=== PATIENT | male | born 1950 | race Caucasian/White ===

== ENCOUNTER 2016-08-09 | Outpatient (CLI) | payer OTHER | END 2016-08-09 13:18 | disposition critical access hospital (66) | CPT/HCPCS: A0425; A0429 ==

== ENCOUNTER 2018-04-28 05:07 | Emergency (ER) | payer MEDICARE, OTHER ==
--- NOTE | 2018-04-28 05:36 | ED Physician Documentation ---
PD HPI MALE - Stated complaint Stated Complaint: MALE - Chief complaint Chief Complaint: Abd Pain - History obtained from History obtained from: Patient, Family - History of Present Illness Timing - onset: Enter time (0), Last night Timing - duration: Hours Timing - details: Abrupt onset, Still present Associated symptoms: Hematuria, Back pain Similar symptoms before: Has not had sx before Recently seen: Not recently seen - Additional information Additional information: Previously well 67-year-old male on coumadin for afib has developed some hematuria at about 10 PM last night. He does state that earlier in the day he had some pain in his back which he thought was his usual back pains and then this evening after the hematuria developed he became quite uncomfortable with pain in his back. He states he does not remember having pain this bad previously. He continues to have hematuria. He has not had fever or chills he does not feel ill but he did vomit he believes that was due to the pain. Review of Systems Constitutional: denies: Fever, Chills, Myalgias Eyes: denies: Decreased vision Ears: denies: Ear pain Nose: denies: Rhinorrhea / runny nose, Congestion Throat: denies: Sore throat Cardiac: denies: Chest pain / pressure, Palpitations Respiratory: denies: Dyspnea, Cough GI: reports: Nausea, Vomiting. denies: Abdominal Pain : reports: Hematuria. denies: Dysuria Skin: denies: Rash Musculoskeletal: reports: Back pain. denies: Neck pain, Extremity pain Neurologic: denies: Generalized weakness, Focal weakness, Numbness PD PAST MEDICAL HISTORY - Past Medical History Past Medical History: Yes Cardiovascular: High cholesterol, Atrial fibrillation, Hypertension Respiratory: None Endocrine/Autoimmune: None GI: None : Benign prostate hypertrophy, None HEENT: None Psych: None Musculoskeletal: None, Osteoarthritis Derm: None - Past Surgical History Past Surgical History: Yes General: Other Ortho: ACL reconstruction - Present Medications Home Medications: Ambulatory Orders Medication Instructions Recorded Confirmed RX: Metoprolol Tartrate 100 mg PO BID 02/22/14 04/28/18 RX: Aspirin [Aspir-Low] 81 mg PO DAILY 08/09/16 04/28/18 RX: Atorvastatin Calcium 20 mg PO DAILY 04/28/18 04/28/18 RX: Flecainide [Tambocar] 100 mg PO DAILY 04/28/18 04/28/18 RX: Lisinopril 20 mg PO DAILY 04/28/18 04/28/18 RX: Warfarin Sodium 5 mg PO QPM 04/28/18 04/28/18 RX: Warfarin Sodium 7.5 mg PO DAILY 04/28/18 04/28/18 - Allergies Allergies/Adverse Reactions: Allergies Allergy/AdvReac Type Severity Reaction Status Date / Time codeine AdvReac Nausea Verified 04/28/18 05:18 - Social History Does the pt smoke?: Yes Smoking Status: Current every day smoker Does the pt drink ETOH?: Yes Does the pt have substance abuse?: Yes - POLST Patient has POLST: No PD ED PE NORMAL - Vitals Vital signs reviewed: Yes (hypertensive moderate) - General General: Alert and oriented X 3, No acute distress, Well developed/nourished - HEENT HEENT: Atraumatic, PERRL, EOMI - Neck Neck: Supple, no meningeal sign - Cardiac Cardiac: RRR, No murmur - Respiratory Respiratory: No respiratory distress, Clear bilaterally - Abdomen Abdomen: Soft, Non tender, No organomegaly - Back Back: No CVA TTP, No spinal TTP - Derm Derm: Normal color, Warm and dry, No rash - Extremities Extremities: No deformity, No edema - Neuro Neuro: Alert and oriented X 3, piercer 2-12 intact, No motor deficit, No sensory deficit, Normal speech Eye Opening: Spontaneous Motor: Obeys Commands Verbal: Oriented GCS Score: 15 - Psych Psych: Normal mood, Normal affect Results - Vitals Vitals: Vital Signs - 24 hr 04/28/18 04/28/18 04/28/18 05:15 05:53 06:14 Temperature 36.9 C Heart Rate 90 89 86 Respiratory 20 16 16 Rate Blood Pressure 179/105 H 183/114 H 171/119 H O2 Saturation 96 95 97 04/28/18 04/28/18 06:33 07:09 Temperature 36.5 C Heart Rate 90 Respiratory 15 Rate Blood Pressure 157/104 H O2 Saturation 96 Oxygen O2 Source Room air - Labs Labs: Laboratory Tests 04/28/18 04/28/18 04/28/18 05:25 05:25 05:25 WBC 17.6 H RBC 5.23 Hgb 16.4 Hct 49.3 MCV 94.3 H MCH 31.4 H MCHC 33.3 RDW 14.9 Plt Count 236 MPV 7.6 Neut # (Auto) 15.2 H Lymph # (Auto) 1.3 L [place] # (Auto) 0.9 Eos # (Auto) 0.1 Baso # (Auto) 0.1 Absolute Nucleated RBC 0.01 Nucleated RBC % 0.0 PT INR Sodium 139 Potassium 3.8 Chloride 99 L Carbon Dioxide 31 Anion Gap 9.0 BUN 24 H Creatinine 1.3 H Estimated GFR (MDRD) 55 L Glucose 139 H Calcium 9.0 Total Bilirubin 0.8 AST 31 ALT 26 Alkaline Phosphatase 98 Total Protein 7.9 Albumin 4.5 Globulin 3.4 Albumin/Globulin Ratio 1.3 Lipase 24 Urine Color RED/BLOODY Urine Clarity SL. CLOUDY Urine pH 7.0 Ur Specific [place] 1.020 Urine Protein 100 H Urine Glucose (UA) NEGATIVE Urine Ketones NEGATIVE Urine Occult Blood LARGE H Urine Nitrite POSITIVE H Urine Bilirubin NEGATIVE Urine Urobilinogen 0.2 (NORMAL) Ur Leukocyte Esterase TRACE H Urine RBC TNTC H Urine WBC 0-3 Ur Squamous Epith Cells NONE SEEN Urine Bacteria Rare Ur Microscopic Review INDICATED Urine Culture Comments INDICATED 04/28/18 05:25 WBC RBC Hgb Hct MCV MCH MCHC RDW Plt Count MPV Neut # (Auto) Lymph # (Auto) [place] # (Auto) Eos # (Auto) Baso # (Auto) Absolute Nucleated RBC Nucleated RBC % PT 32.4 H INR 2.9 H Sodium Potassium Chloride Carbon Dioxide Anion Gap BUN Creatinine Estimated GFR (MDRD) Glucose Calcium Total Bilirubin AST ALT Alkaline Phosphatase Total Protein Albumin Globulin Albumin/Globulin Ratio Lipase Urine Color Urine Clarity Urine pH Ur Specific [place] Urine Protein Urine Glucose (UA) Urine Ketones Urine Occult Blood Urine Nitrite Urine Bilirubin Urine Urobilinogen Ur Leukocyte Esterase Urine RBC Urine WBC Ur Squamous Epith Cells Urine Bacteria Ur Microscopic Review Urine Culture Comments - Rads (name of study) CT abdomen and pelvis without Radiology: Prelim report reviewed (Impression: Right hydronephrosis with hydroureter, with perinephric stranding. This may represent sequelae of recently passed stone. No definite nephrolithiasis or ureteral lithiasis.), EMP read indepedently, See rad report Procedures - Bedside sono Bedside sono by EMP: With use of bedside ultrasound the right kidney is imaged there is evidence of mild hydronephrosis and the kidney is sonographically nontender. PD MEDICAL DECISION MAKING - ED course Complexity details: reviewed old records, reviewed results, re-evaluated patient, considered differential, d/w patient, d/w family ED course: 67-year-old male on Coumadin for atrial fibrillation has developed acute hematuria and flank pain. He has improvement in his pain with use of intravenous Toradol and his CT scan shows what appears to be residual of a passed stone. There is minimal right hydronephrosis. Examination of the urine shows positive nitrite and leukocyte Estrace and 0-3 white blood cells per high- powered field urine does make grade for culture and there is a lot of blood in the urine. The patient's INR is 2.9. He is administered Levaquin 500 mg intravenously. The patient is pain free and feeling well at the time of discharge. He will not take his coumadin today and we will hold off on a course of antibiotic and await culture results. Most likely the patient has passed a stone. Departure - Departure Disposition: 01 Home, Self Care Clinical Impression: Ureterolithiasis Instructions: ED Stone Renal Passed Follow-Up: Fany Taveras DO [Primary Care Provider] - Comments: Today in the Emergency Department your blood pressure was elevated. This can happen from the stress of the visit itself, from a current illness or circumstance or from uncontrolled hypertension. If you take blood pressure medications take your usual mediations, have your blood pressure re-checked in an appropriate setting and follow up any elevation with your primary care doctor.
[2018-04-28 05:37] LABS: BASOPHILS # (AUTO) 0.1 10^3/uL (0.0-0.1); BASOPHILS % (AUTO) 0.5 %; EOSINOPHILS # (AUTO) 0.1 10^3/uL (0.0-0.7); EOSINOPHILS % (AUTO) 0.4 %; HGB - HEMOGLOBIN 16.4 g/dL (14.0-18.0); LYMPHOCYTES # (AUTO) 1.3 10^3/uL (1.5-3.5); LYMPHOCYTES % (AUTO) 7.4 %; MEAN CORPUSCULAR HEMOGLOBIN 31.4 pg (27.0-31.0); MEAN CORPUSCULAR HGB CONC 33.3 g/dL (32.0-36.0); MEAN CORPUSCULAR VOLUME 94.3 fL (80.0-94.0); MEAN PLATELET VOLUME 7.6 fL (7.4-11.4); MONOCYTES # (AUTO) 0.9 10^3/uL (0.0-1.0); NEUTROPHILS # (AUTO) 15.2 10^3/uL (1.5-6.6); NEUTROPHILS % (AUTO) 86.7 %; PLT - PLATELET COUNT 236 10^3/uL (130-450); RED BLOOD COUNT 5.23 10^6/uL (4.70-6.10); RED CELL DISTRIBUTION WIDTH 14.9 % (12.0-15.0); WHITE BLOOD COUNT 17.6 x10^3/uL (4.8-10.8)
[2018-04-28] MEDS ORDERED: SODIUM CHLORIDE 0.9% 1,000 ML IV ONE (05:37)
[2018-04-28] MEDS ORDERED: ONDANSETRON 4 MG/2 ML VIAL IVP STA (05:37)
[2018-04-28] MEDS ORDERED: KETOROLAC 60 MG/2 ML VIAL IVP STA (05:37)
[2018-04-28 05:49] LABS: ALBUMIN 4.5 g/dL (3.2-5.5); ALBUMIN/GLOBULIN RATIO 1.3 (1.0-2.2); BILIRUBIN,TOTAL 0.8 mg/dL (0.2-1.0); CREATININE 1.3 mg/dL (0.6-1.2); TOTAL PROTEIN 7.9 g/dL (6.7-8.2)
[2018-04-28 05:51] LABS: BILIRUBIN,URINE NEGATIVE (NEGATIVE); GLUCOSE, URINE (UA) NEGATIVE (NEGATIVE); KETONES,URINE (UA) NEGATIVE (NEGATIVE); LEUKOCYTE ESTERASE, URINE TRACE (NEGATIVE); NITRITE,URINE POSITIVE (NEGATIVE); OCCULT BLOOD,URINE LARGE (NEGATIVE); PROTEIN,URINE 100 mg/dL (NEGATIVE); UROBILINOGEN,URINE 0.2 (NORMAL) E.U./dL (NORMAL)
[2018-04-28 06:04] LABS: CLARITY,URINE SL. CLOUDY (CLEAR); INR 2.9 (0.8-1.2); PT - PROTHROMBIN TIME 32.4 secs (9.9-12.6)
[2018-04-28 06:05] LABS: BACTERIA,URINE Rare /HPF (None Seen); RBC,URINE TNTC /HPF (0-5); SQUAMOUS EPITHELIAL CELL,UR NONE SEEN (<= Few)
[2018-04-28] MEDS ORDERED: levoFLOXacin 500 MG/100 ML 500 MG/100 ML BAG IV ONE (06:15)
--- NOTE | 2018-04-28 06:37 | CT Report ---
Reason: R flank pain hematuria Procedure Date: 04/28/2018 Accession Number: [id number] / [id number] Procedure: CT - Abdomen/Pelvis W/O CPT Code: FULL RESULT: EXAM: CT ABDOMEN AND PELVIS (CT KUB) EXAM DATE: 04/28/2018 06:17 AM. CLINICAL HISTORY: R flank pain hematuria. COMPARISONS: None. TECHNIQUE: Routine axial helical CT imaging was performed through the abdomen and pelvis without IV contrast. Reconstructions: Coronal and sagittal. In accordance with CT protocol optimization, one or more of the following dose reduction techniques were utilized for this exam: automated exposure control, adjustment of mA and/or KV based on patient size, or use of iterative reconstructive technique. FINDINGS: Lung Bases: Unremarkable. Right Kidney/Ureter: Right mild hydronephrosis and hydroureter, with. He never again. Ureteric stranding. No upper tract calculus is seen. No definite right ureteral calculus is appreciated. Left Kidney/Ureter: No stones, hydronephrosis, or hydroureter. No perinephric fat stranding. Other Solid Organs: Noncontrast images of the solid organs are grossly unremarkable. Gallbladder/Bile Ducts: Unremarkable. Peritoneal Cavity: No free fluid, free air or leilani adenopathy. The appendix is normal. Bowel is grossly unremarkable. Pelvic Organs: No bladder stones or wall thickening. Noncontrast images of the visualized pelvic organs are unremarkable. Vasculature: Unremarkable. Other: None. IMPRESSION: Right hydronephrosis and hydroureter, with perinephric stranding. This may represent sequelae of a recently passed stone. No definite nephrolithiasis or ureterolithiasis. RADIA
[2018-04-28 07:43] VITALS: BP 147/104
== END 2018-04-28 07:43 | disposition home or self-care (01) ==
LOC: ED 05:07
DX: N13.2 Hydronephrosis with renal and ureteral calculous obstruction (principal); I48.91 Unspecified atrial fibrillation; Z79.01 Long term (current) use of anticoagulants; I10 Essential (primary) hypertension; F17.200 Nicotine dependence, unspecified, uncomplicated
CPT/HCPCS: 36415; 74176; 80053; 81001; 81003; 83690; 85025; 85610; 87086; 96365; 96375; 99284

== ENCOUNTER 2018-05-17 13:25 | Outpatient (CLI) | payer MEDICARE ==
[2018-05-17 18:56] LABS: INR 1.6 (0.8-1.2); PT - PROTHROMBIN TIME 18.4 secs (9.9-12.6)
== END 2018-05-17 13:26 | disposition home or self-care (01) ==
LOC: LAB.WCP 13:25
PROVIDERS: ATTEND Nurse Practitioner
DX: I48.0 Paroxysmal atrial fibrillation (principal); Z79.01 Long term (current) use of anticoagulants
CPT/HCPCS: 36415; 85610

== ENCOUNTER 2018-09-14 08:00 | Outpatient (CLI) | payer MEDICARE | END 2018-09-14 23:59 | disposition home or self-care (01) | LOC: LAB.WCP 08:00 | PROVIDERS: ATTEND Family Medicine | DX: I48.0 Paroxysmal atrial fibrillation (principal); Z79.01 Long term (current) use of anticoagulants ==

== ENCOUNTER 2018-09-30 08:00 | Outpatient (CLI) | payer MEDICARE | END 2018-09-30 23:59 | disposition home or self-care (01) | LOC: LAB.WCP 08:00 | PROVIDERS: ATTEND Family Medicine | DX: I48.0 Paroxysmal atrial fibrillation (principal); Z79.01 Long term (current) use of anticoagulants ==

== ENCOUNTER 2018-11-09 08:15 | Outpatient (CLI) | payer MEDICARE ==
[2018-11-09 12:31] LABS: BASOPHILS # (AUTO) 0.1 10^3/uL (0.0-0.1); BASOPHILS % (AUTO) 1.2 %; EOSINOPHILS # (AUTO) 0.3 10^3/uL (0.0-0.7); EOSINOPHILS % (AUTO) 3.1 %; HGB - HEMOGLOBIN 15.6 g/dL (14.0-18.0); LYMPHOCYTES # (AUTO) 2.3 10^3/uL (1.5-3.5); MEAN CORPUSCULAR HEMOGLOBIN 31.8 pg (27.0-31.0); MEAN CORPUSCULAR HGB CONC 33.4 g/dL (32.0-36.0); MEAN CORPUSCULAR VOLUME 95.3 fL (80.0-94.0); MEAN PLATELET VOLUME 8.4 fL (7.4-11.4); MONOCYTES # (AUTO) 0.7 10^3/uL (0.0-1.0); MONOCYTES % (AUTO) 8.1 %; NEUTROPHILS # (AUTO) 5.2 10^3/uL (1.5-6.6); NEUTROPHILS % (AUTO) 60.6 %; PLT - PLATELET COUNT 208 10^3/uL (130-450); RED BLOOD COUNT 4.92 10^6/uL (4.70-6.10); RED CELL DISTRIBUTION WIDTH 14.9 % (12.0-15.0); WHITE BLOOD COUNT 8.6 x10^3/uL (4.8-10.8)
[2018-11-09 13:11] LABS: ALBUMIN 3.9 g/dL (3.2-5.5); ALBUMIN/GLOBULIN RATIO 1.3 (1.0-2.2); ALKALINE PHOSPHATASE 86 IU/L (42-121); ALT ALANINE AMINOTRANSFERASE 24 IU/L (10-60); AST ASPARTATE AMINOTRANSFERASE 30 IU/L (10-42); BILIRUBIN,TOTAL 0.5 mg/dL (0.2-1.0); BUN - BLOOD UREA NITROGEN 22 mg/dL (6-20); CALCIUM 8.6 mg/dL (8.5-10.3); CARBON DIOXIDE - CO2 29 mmol/L (21-32); CHLORIDE 100 mmol/L (101-111); CHOL/HDL RATIO 4.2 (<5.0); CHOLESTEROL 159 mg/dL; CREATININE 1.1 mg/dL (0.6-1.2); GFR - MDRD 67 (>89); GLUCOSE 113 mg/dL (70-100); HDL CHOLESTEROL 38 mg/dL; LDL CHOLESTEROL,CALCULATED 96 mg/dL; LDL/HDL RATIO 2.5 (<3.6); SODIUM 138 mmol/L (135-145); TOTAL PROTEIN 6.8 g/dL (6.7-8.2); VLDL CHOLESTEROL 25 mg/dL
== END 2018-11-09 08:16 | disposition home or self-care (01) ==
LOC: LAB.WCP 08:15
PROVIDERS: ATTEND Physician Assistant Medical
DX: I10 Essential (primary) hypertension (principal); E78.5 Hyperlipidemia, unspecified
CPT/HCPCS: 36415; 80053; 80061; 83721; 85025

== ENCOUNTER 2018-12-30 08:00 | Outpatient (CLI) | payer MEDICARE | END 2018-12-30 08:01 | disposition home or self-care (01) | LOC: LAB.WCP 08:00 | PROVIDERS: ATTEND Family Medicine | DX: I48.0 Paroxysmal atrial fibrillation (principal); Z79.01 Long term (current) use of anticoagulants ==

== ENCOUNTER 2019-02-02 08:00 | Outpatient (CLI) | payer MEDICARE | END 2019-02-02 23:59 | disposition home or self-care (01) | LOC: LAB.WCP 08:00 | PROVIDERS: ATTEND Family Medicine | DX: I48.0 Paroxysmal atrial fibrillation (principal); Z79.01 Long term (current) use of anticoagulants ==

== ENCOUNTER 2019-02-16 08:00 | Outpatient (CLI) | payer MEDICARE | END 2019-02-16 23:59 | disposition home or self-care (01) | LOC: LAB.WCP 08:00 | PROVIDERS: ATTEND Family Medicine | DX: I48.0 Paroxysmal atrial fibrillation (principal); Z79.01 Long term (current) use of anticoagulants ==

== ENCOUNTER 2019-03-03 08:00 | Outpatient (CLI) | payer MEDICARE | END 2019-03-03 23:59 | disposition home or self-care (01) | LOC: LAB.WCP 08:00 | PROVIDERS: ATTEND Family Medicine | DX: I48.0 Paroxysmal atrial fibrillation (principal); Z79.01 Long term (current) use of anticoagulants ==

== ENCOUNTER 2019-03-31 08:00 | Outpatient (CLI) | payer MEDICARE | END 2019-03-31 23:59 | disposition home or self-care (01) | LOC: LAB.WCP 08:00 | PROVIDERS: ATTEND Family Medicine | DX: I48.0 Paroxysmal atrial fibrillation (principal); Z79.01 Long term (current) use of anticoagulants ==

== ENCOUNTER 2019-05-03 08:00 | Outpatient (CLI) | payer MEDICARE | END 2019-05-03 23:59 | disposition home or self-care (01) | LOC: LAB.WCP 08:00 | PROVIDERS: ATTEND Family Medicine | DX: I48.0 Paroxysmal atrial fibrillation (principal); Z79.01 Long term (current) use of anticoagulants ==

== ENCOUNTER 2019-05-30 08:00 | Outpatient (CLI) | payer MEDICARE | END 2019-05-30 23:59 | disposition home or self-care (01) | LOC: LAB.WCP 08:00 | PROVIDERS: ATTEND Family Medicine | DX: Z79.01 Long term (current) use of anticoagulants (principal); I48.0 Paroxysmal atrial fibrillation ==

== ENCOUNTER 2019-08-05 08:00 | Outpatient (CLI) | payer MEDICARE | END 2019-08-05 23:59 | disposition home or self-care (01) | LOC: LAB.WCP 08:00 | PROVIDERS: ATTEND Family Medicine | DX: Z79.01 Long term (current) use of anticoagulants (principal); I48.0 Paroxysmal atrial fibrillation ==

== ENCOUNTER 2019-08-19 08:00 | Outpatient (CLI) | payer MEDICARE | END 2019-08-19 23:59 | disposition home or self-care (01) | LOC: LAB.WCP 08:00 | PROVIDERS: ATTEND Family Medicine | DX: I48.0 Paroxysmal atrial fibrillation (principal); Z79.01 Long term (current) use of anticoagulants ==

== ENCOUNTER 2019-12-29 08:00 | Outpatient (CLI) | payer MEDICARE | END 2019-12-29 23:59 | disposition home or self-care (01) | LOC: LAB.WCP 08:00 | PROVIDERS: ATTEND Family Medicine | DX: I48.0 Paroxysmal atrial fibrillation (principal); Z79.01 Long term (current) use of anticoagulants ==

== ENCOUNTER 2020-01-12 08:00 | Outpatient (CLI) | payer MEDICARE | END 2020-01-12 23:59 | disposition home or self-care (01) | LOC: LAB.WCP 08:00 | PROVIDERS: ATTEND Family Medicine | DX: I48.0 Paroxysmal atrial fibrillation (principal); Z79.01 Long term (current) use of anticoagulants ==

== ENCOUNTER 2020-02-24 08:00 | Outpatient (CLI) | payer MEDICARE | END 2020-02-24 23:59 | disposition home or self-care (01) | LOC: LAB.WCP 08:00 | PROVIDERS: ATTEND Family Medicine | DX: I48.0 Paroxysmal atrial fibrillation (principal); Z79.01 Long term (current) use of anticoagulants ==

== ENCOUNTER 2020-03-23 08:00 | Outpatient (CLI) | payer MEDICARE | END 2020-03-23 23:59 | disposition home or self-care (01) | LOC: LAB.WCP 08:00 | PROVIDERS: ATTEND Family Medicine | DX: Z79.01 Long term (current) use of anticoagulants (principal) ==

== ENCOUNTER 2020-04-09 11:10 | Emergency (ER) | payer MEDICARE ==
[2020-04-09 12:32] LABS: BASOPHILS # (AUTO) 0.1 10^3/uL (0.0-0.1); BASOPHILS % (AUTO) 0.8 %; EOSINOPHILS # (AUTO) 0.2 10^3/uL (0.0-0.7); EOSINOPHILS % (AUTO) 1.6 %; HGB - HEMOGLOBIN 15.3 g/dL (14.0-18.0); LYMPHOCYTES # (AUTO) 1.7 10^3/uL (1.5-3.5); MEAN CORPUSCULAR HEMOGLOBIN 32.6 pg (27.0-31.0); MEAN CORPUSCULAR HGB CONC 34.5 g/dL (32.0-36.0); MEAN CORPUSCULAR VOLUME 94.5 fL (80.0-94.0); MEAN PLATELET VOLUME 9.2 fL (7.4-11.4); MONOCYTES # (AUTO) 0.6 10^3/uL (0.0-1.0); MONOCYTES % (AUTO) 5.6 %; NEUTROPHILS # (AUTO) 7.9 10^3/uL (1.5-6.6); NEUTROPHILS % (AUTO) 75.7 %; PLT - PLATELET COUNT 208 10^3/uL (130-450); RED BLOOD COUNT 4.69 10^6/uL (4.70-6.10); RED CELL DISTRIBUTION WIDTH 13.3 % (12.0-15.0); WHITE BLOOD COUNT 10.4 x10^3/uL (4.8-10.8)
[2020-04-09 12:40] LABS: INR 2.7 (0.8-1.2); PT - PROTHROMBIN TIME 28.3 secs (9.9-12.6)
[2020-04-09 12:42] LABS: CALCIUM 8.9 mg/dL (8.5-10.3)
--- NOTE | 2020-04-09 13:06 | ED Physician Documentation ---
PD HPI OPHTHO - Stated complaint Stated Complaint: L EYE VISION LOSS - Chief complaint Chief Complaint: Heent - History obtained from History obtained from: Patient - History of Present Illness Timing - onset: How many days ago (3) Pain level max: 0 Pain level now: 0 Location: Left Quality / character: No: Itching, Burning, Aching Associated symptoms: No: Redness, Swelling Recently seen: Not recently seen - Additional information Additional information: 69-year-old male presents to the emergency department stating that he coughed/sneezed 3 days ago and saw dark spots in his left eye with decrease in his vision. Has been ongoing all weekend. Similar thing happened several years ago and he received injections in his eye. He called [facility] to see where he could be seen and they stated that he needed to go to the emergency department to ensure he was not having a stroke. Nothing makes it better or worse. He is on warfarin for atrial fibrillation. Review of Systems Constitutional: denies: Fever, Chills Respiratory: denies: Cough GI: denies: Nausea, Vomiting, Diarrhea Skin: denies: Rash Musculoskeletal: denies: Neck pain, Back pain Neurologic: denies: Headache PD PAST MEDICAL HISTORY - Past Medical History Past Medical History: Yes Cardiovascular: High cholesterol, Atrial fibrillation, Hypertension Respiratory: None Endocrine/Autoimmune: None GI: None : Benign prostate hypertrophy, None HEENT: None Psych: None Musculoskeletal: None, Osteoarthritis Derm: None - Past Surgical History Past Surgical History: Yes General: Other Ortho: ACL reconstruction - Present Medications Home Medications: Ambulatory Orders Medication Instructions Recorded Confirmed Metoprolol Tartrate 100 mg PO BID 02/22/14 04/28/18 Aspirin [Aspir-Low] 81 mg PO DAILY 08/09/16 04/28/18 Atorvastatin Calcium 20 mg PO DAILY 04/28/18 04/28/18 Flecainide [Tambocar] 100 mg PO DAILY 04/28/18 04/28/18 Warfarin Sodium 5 mg PO QPM 04/28/18 04/28/18 Warfarin Sodium 7.5 mg PO DAILY 04/28/18 04/28/18 lisinopriL [Lisinopril] 20 mg PO DAILY 04/28/18 04/28/18 - Allergies Allergies/Adverse Reactions: Allergies Allergy/AdvReac Type Severity Reaction Status Date / Time codeine AdvReac Nausea Verified 04/09/20 11:25 - Social History Does the pt smoke?: Yes Smoking Status: Current every day smoker Does the pt drink ETOH?: Yes Does the pt have substance abuse?: Yes - Immunizations Immunizations are current?: Yes - POLST Patient has POLST: No PD ED PE NORMAL - Vitals Vital signs reviewed: Yes - General General: Alert and oriented X 3, No acute distress - HEENT HEENT: Moist mucous membranes, Other (Able to visualize the fundus in the left eye. Bedside ultrasound reveals a bright irregular structure in the center of the globe with debris. Concerning for retinal detachment) - Neck Neck: Supple, no meningeal sign - Cardiac Cardiac: RRR - Respiratory Respiratory: No respiratory distress, Clear bilaterally - Derm Derm: Warm and dry - Neuro Neuro: Alert and oriented X 3 - Psych Psych: Normal mood, Normal affect Results - Vitals Vitals: Vital Signs - 24 hr 04/09/20 04/09/20 04/09/20 11:26 12:04 12:21 Temperature 36.8 C 37.2 C 37.2 C Heart Rate 104 H 82 82 Respiratory 16 18 18 Rate Blood Pressure 181/88 H 145/99 H 145/99 H O2 Saturation 98 100 100 Oxygen O2 Source Room air - Labs Labs: Laboratory Tests 04/09/20 04/09/20 04/09/20 12:28 12:28 12:28 WBC 10.4 RBC 4.69 L Hgb 15.3 Hct 44.3 MCV 94.5 H MCH 32.6 H MCHC 34.5 RDW 13.3 Plt Count 208 MPV 9.2 Neut # (Auto) 7.9 H Lymph # (Auto) 1.7 [place] # (Auto) 0.6 Eos # (Auto) 0.2 Baso # (Auto) 0.1 Absolute Nucleated RBC 0.00 Nucleated RBC % 0.0 PT 28.3 H INR 2.7 H Sodium 138 Potassium 3.3 L Chloride 101 Carbon Dioxide 26 Anion Gap 11.0 BUN 17 Creatinine 1.0 Estimated GFR (MDRD) 74 L Glucose 113 H Calcium 8.9 PD MEDICAL DECISION MAKING - ED course Complexity details: reviewed results, considered differential, d/w patient ED course: Discussed the case with ophthalmology, Dr. Persaud who will see the patient in his office this afternoon. Patient does not need to have any reversal of his warfarin done. Patient counseled regarding signs and symptoms for which I believe and urgent re-evaluation would be necessary. Patient with good understanding of and agreement to plan and is comfortable going home at this time This document was made in part using voice recognition software. While efforts are made to proofread this document, sound alike and grammatical errors may occur. Departure - Departure Disposition: 01 Home, Self Care Clinical Impression: Retinal detachment Qualifiers: Laterality: right Qualified Code(s): H33.21 - Serous retinal detachment, right eye Condition: Good Instructions: ED Detachment Retinal Follow-Up: Fany Taveras DO [Primary Care Provider] - Karson Persaud MD [Provider Admit Priv/Credential] - Comments: Call Dr. Persaud's office when you leave here today, they will give you an appointment this afternoon to see him. Return if you worsen
[2020-04-09 13:11] VITALS: BP 142/89
== END 2020-04-09 13:16 | disposition home or self-care (01) ==
LOC: ED 11:10
DX: H33.22 Serous retinal detachment, left eye (principal); I10 Essential (primary) hypertension; I48.91 Unspecified atrial fibrillation; Z79.01 Long term (current) use of anticoagulants; Z79.82 Long term (current) use of aspirin; F17.200 Nicotine dependence, unspecified, uncomplicated
CPT/HCPCS: 36415; 80048; 85025; 85610; 99283; 99284

== ENCOUNTER 2020-04-23 08:00 | Outpatient (CLI) | payer MEDICARE | END 2020-04-23 23:59 | disposition home or self-care (01) | LOC: LAB.WCP 08:00 | PROVIDERS: ATTEND Nurse Practitioner | DX: Z79.01 Long term (current) use of anticoagulants (principal) ==

== ENCOUNTER 2020-05-07 08:00 | Outpatient (CLI) | payer MEDICARE | END 2020-05-07 23:59 | disposition home or self-care (01) | LOC: LAB.WCP 08:00 | PROVIDERS: ATTEND Family Medicine | DX: Z79.01 Long term (current) use of anticoagulants (principal) ==

== ENCOUNTER 2020-05-21 08:00 | Outpatient (CLI) | payer MEDICARE | END 2020-05-21 23:59 | disposition home or self-care (01) | LOC: LAB.WCP 08:00 | PROVIDERS: ATTEND Family Medicine | DX: Z79.01 Long term (current) use of anticoagulants (principal) ==

== ENCOUNTER 2020-05-28 08:00 | Outpatient (CLI) | payer MEDICARE | END 2020-05-28 23:59 | disposition home or self-care (01) | LOC: LAB.WCP 08:00 | PROVIDERS: ATTEND Family Medicine | DX: Z79.01 Long term (current) use of anticoagulants (principal) ==

== ENCOUNTER 2020-06-04 08:00 | Outpatient (CLI) | payer MEDICARE | END 2020-06-04 23:59 | disposition home or self-care (01) | LOC: LAB.WCP 08:00 | PROVIDERS: ATTEND Family Medicine | DX: Z79.01 Long term (current) use of anticoagulants (principal) ==

== ENCOUNTER 2020-06-11 | Outpatient (CLI) | payer MEDICARE ==
--- OUTSIDE RECORDS SUMMARY | 2020-07-18 00:01 | EXTERNAL MEDICAL SUMMARY RPT | Continuity of Care Document ---
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[facility] 2020-04-09 11:10 PENITENTIARY (CURRENT) [facility] 2020-04-09 11:10 BOAT DRIVER (CURRENT) USE OF [facility] formerly [facility] 2020-04-09 11:10 NICOTINE DEPENDENCE, UNSPECIFIED, [facility] UNCOMPLICATED 2020-04-09 11:10 SEROUS RETINAL DETACHMENT, LEFT [facility] EYE 2020-04-09 11:10 UNQUALIFIED VISUAL LOSS, LEFT EYE, formerly [facility] NORMAL VISION RIGHT EYE 2020-04-09 11:10 ESSENTIAL (PRIMARY) HYPERTENSION [facility] 2020-04-09 11:10 UNSPECIFIED ATRIAL FIBRILLATION [facility] 2020-04-23 08:00 PENITENTIARY (CURRENT) [facility] 2020-05-07 08:00 BOAT DRIVER (CURRENT) [facility] 2020-05-21 08:00 PENITENTIARY (CURRENT) [facility] 2020-05-28 08:00 BOAT DRIVER (CURRENT) [facility] 2020-06-04 08:00 BOAT DRIVER (CURRENT) [facility] 2020-06-11 08:00 BOAT DRIVER (CURRENT) [facility] Allergies date description facility MEPERIDINE [facility] OXYCODONE [facility] TRAMADOL [facility] NO KNOWN ENVIRONMENTAL ALLERGIES [facility] NSAIDS [facility] PENICILLINS [facility] NO KNOWN ALLERGIES [facility] PENICILLINS [facility] NO KNOWN ALLERGIES [facility] CHLORTHALIDONE [facility] AMOXICILLIN [facility] HYDROMORPHONE [facility] codeine [facility] NO ALLERGY INFORMATION AVAILABLE [facility] Procedures date description facility 2020-04-23 00:00:00 POC PROTHROMBIN TIME [facility] date description facility 2020-04-23 00:00:00 ANTICOAG MGMT PT WARFARIN [facility] date description facility 2020-04-23 00:00:00 [facility] date description facility 2020-04-30 00:00:00 POC PROTHROMBIN TIME [facility] date description facility 2020-04-30 00:00:00 ANTICOAG MGMT PT WARFARIN [facility] date description facility 2020-04-30 00:00:00 [facility] date description facility 2020-05-07 00:00:00 POC PROTHROMBIN TIME [facility] date description facility 2020-05-07 00:00:00 ANTICOAG MGMT PT WARFARIN [facility] date description facility 2020-05-07 00:00:00 [facility] date description facility 2020-05-21 00:00:00 POC PROTHROMBIN TIME [facility] date description facility 2020-05-21 00:00:00 ANTICOAG MGMT PT WARFARIN [facility] date description facility 2020-05-21 00:00:00 [facility] date description facility 2020-05-28 00:00:00 POC PROTHROMBIN TIME [facility] date description facility 2020-05-28 00:00:00 ANTICOAG MGMT PT WARFARIN [facility] date description facility 2020-05-28 00:00:00 [facility] date description facility 2020-06-04 00:00:00 POC PROTHROMBIN TIME [facility] date description facility 2020-06-04 00:00:00 ANTICOAG MGMT PT WARFARIN [facility] date description facility 2020-06-04 00:00:00 [facility] date description facility 2020-06-11 00:00:00 POC PROTHROMBIN TIME [facility] date description facility 2020-06-11 00:00:00 ANTICOAG MGMT PT WARFARIN [facility] date description facility 2020-06-11 00:00:00 [facility] date description facility 2020-07-09 00:00:00 POC PROTHROMBIN TIME [facility] date description facility 2020-07-09 00:00:00 ANTICOAG MGMT PT WARFARIN [facility] date description facility 2020-07-09 00:00:00 [facility] Results test status date ordered by attending specimen monique e international_no unknown 2020-04-23 unknown unknown unkno wn rmalized_ratio_IN 00:00:00 R_ INR_in_Platelet_ unknown 2020-04-23 unknown unknown unkno wn poor_plasma_by_Co 00:00:00 agulation_assay international_no unknown 2020-04-30 unknown unknown unkno wn rmalized_ratio_IN 00:00:00 R_ INR_in_Platelet_ unknown 2020-04-30 unknown unknown unkno wn poor_plasma_by_Co 00:00:00 agulation_assay international_no unknown 2020-05-07 unknown unknown unkno wn rmalized_ratio_IN 00:00:00 R_ INR_in_Platelet_ unknown 2020-05-07 unknown unknown unkno wn poor_plasma_by_Co 00:00:00 agulation_assay international_no unknown 2020-05-21 unknown unknown unkno wn rmalized_ratio_IN 00:00:00 R_ INR_in_Platelet_ unknown 2020-05-21 unknown unknown unkno wn poor_plasma_by_Co 00:00:00 agulation_assay international_no unknown 2020-05-28 unknown unknown unkno wn rmalized_ratio_IN 00:00:00 R_ INR_in_Platelet_ unknown 2020-05-28 unknown unknown unkno wn poor_plasma_by_Co 00:00:00 agulation_assay international_no unknown 2020-06-04 unknown unknown unkno wn rmalized_ratio_IN 00:00:00 R_ INR_in_Platelet_ unknown 2020-06-04 unknown unknown unkno wn poor_plasma_by_Co 00:00:00 agulation_assay international_no unknown 2020-06-11 unknown unknown unkno wn rmalized_ratio_IN 00:00:00 R_ INR_in_Platelet_ unknown 2020-06-11 unknown unknown unkno wn poor_plasma_by_Co 00:00:00 agulation_assay international_no unknown 2020-07-09 unknown unknown unkno wn rmalized_ratio_IN 00:00:00 R_ INR_in_Platelet_ unknown 2020-07-09 unknown unknown unkno wn poor_plasma_by_Co 00:00:00 agulation_assay facility observation status value reference units lab abnor mal line range code notes [facility] unknown 1.9 unknown _309 unknown unknown [facility] l_normalized_ [facility] ratio_INR_ [facility] INR_in_Plate unknown 1.9 unknown _[id number] unknown unknown [facility] let_poor_plas -6 [facility] ma_by_Coagula tion_assay [facility] unknown 2.5 unknown _309 unknown unknown [facility] l_normalized_ [facility] ratio_INR_ [facility] INR_in_Plate unknown 2.5 unknown _6301 unknown unknown [facility] let_poor_plas -6 [facility] ma_by_Coagula tion_assay [facility] unknown 3.2 unknown _309 unknown unknown [facility] l_normalized_ [facility] ratio_INR_ [facility] INR_in_Plate unknown 3.2 unknown _6301 unknown unknown [facility] let_poor_plas -6 [facility] ma_by_Coagula tion_assay [facility] unknown 2.0 unknown _309 unknown unknown [facility] l_normalized_ [facility] ratio_INR_ [facility] INR_in_Plate unknown 2.0 unknown _[id number] unknown unknown [facility] let_poor_plas -6 [facility] ma_by_Coagula tion_assay [facility] unknown 2.3 unknown _309 unknown unknown [facility] l_normalized_ [facility] ratio_INR_ [facility] INR_in_Plate unknown 2.3 unknown _6301 unknown unknown [facility] let_poor_plas -6 [facility] ma_by_Coagula tion_assay [facility] unknown 2.6 unknown _309 unknown unknown [facility] l_normalized_ [facility] ratio_INR_ [facility] INR_in_Plate unknown 2.6 unknown _6301 unknown unknown [facility] let_poor_plas -6 [facility] ma_by_Coagula tion_assay [facility] unknown 2.6 unknown _309 unknown unknown [facility] l_normalized_ [facility] ratio_INR_ [facility] INR_in_Plate unknown 2.6 unknown _6301 unknown unknown [facility] let_poor_plas -6 [facility] ma_by_Coagula tion_assay [facility] unknown 1.9 unknown _309 unknown unknown [facility] l_normalized_ [facility] ratio_INR_ [facility] INR_in_Plate unknown 1.9 unknown _[id number] unknown unknown [facility] let_poor_plas -6 [facility] ma_by_Coagula tion_assay Social History date description facility [id number]
== END 2020-06-11 23:59 | disposition home or self-care (01) ==
DX: Z79.01 Long term (current) use of anticoagulants (principal)

== ENCOUNTER 2020-07-09 08:00 | Outpatient (CLI) | payer MEDICARE | END 2020-07-09 23:59 | disposition home or self-care (01) | LOC: LAB.WCP 08:00 | PROVIDERS: ATTEND Family Medicine | DX: Z79.01 Long term (current) use of anticoagulants (principal) ==

== ENCOUNTER 2020-08-06 08:00 | Outpatient (CLI) | payer MEDICARE | END 2020-08-06 23:59 | disposition home or self-care (01) | LOC: LAB.N 08:00 | PROVIDERS: ATTEND Family Medicine | DX: Z79.01 Long term (current) use of anticoagulants (principal) ==

== ENCOUNTER 2020-08-20 08:00 | Outpatient (CLI) | payer MEDICARE | END 2020-08-20 08:01 | disposition home or self-care (01) | LOC: LAB.N 08:00 | PROVIDERS: ATTEND Family Medicine | DX: Z53.9 Procedure and treatment not carried out, unspecified reason (principal); I48.0 Paroxysmal atrial fibrillation ==

== ENCOUNTER 2020-09-19 08:00 | Outpatient (CLI) | payer MEDICARE | END 2020-09-19 23:59 | disposition home or self-care (01) | LOC: LAB.WCP 08:00 | PROVIDERS: ATTEND Family Medicine | DX: I48.0 Paroxysmal atrial fibrillation (principal); Z79.01 Long term (current) use of anticoagulants ==

== ENCOUNTER 2020-10-17 08:00 | Outpatient (CLI) | payer MEDICARE | END 2020-10-17 23:59 | disposition home or self-care (01) | LOC: LAB.N 08:00 | PROVIDERS: ATTEND Family Medicine | DX: I48.0 Paroxysmal atrial fibrillation (principal); Z79.01 Long term (current) use of anticoagulants ==

== ENCOUNTER 2020-11-19 08:00 | Outpatient (CLI) | payer MEDICARE | END 2020-11-19 23:59 | disposition home or self-care (01) | LOC: LAB.N 08:00 | PROVIDERS: ATTEND Family Medicine | DX: Z79.01 Long term (current) use of anticoagulants (principal); I48.0 Paroxysmal atrial fibrillation ==

== ENCOUNTER 2020-12-07 08:00 | Outpatient (CLI) | payer MEDICARE | END 2020-12-07 23:59 | disposition home or self-care (01) | LOC: LAB.N 08:00 | PROVIDERS: ATTEND Family Medicine | DX: I48.0 Paroxysmal atrial fibrillation (principal); Z79.01 Long term (current) use of anticoagulants ==

== ENCOUNTER 2020-12-21 08:00 | Outpatient (CLI) | payer MEDICARE | END 2020-12-21 23:59 | disposition home or self-care (01) | LOC: LAB.N 08:00 | PROVIDERS: ATTEND Family Medicine | DX: I48.0 Paroxysmal atrial fibrillation (principal); Z79.01 Long term (current) use of anticoagulants ==

== ENCOUNTER 2021-01-09 08:00 | Outpatient (CLI) | payer MEDICARE | END 2021-01-09 23:59 | disposition home or self-care (01) | LOC: LAB.N 08:00 | PROVIDERS: ATTEND Family Medicine | DX: I48.0 Paroxysmal atrial fibrillation (principal); Z79.01 Long term (current) use of anticoagulants ==

== ENCOUNTER 2021-01-16 08:00 | Outpatient (CLI) | payer MEDICARE | END 2021-01-16 23:59 | disposition home or self-care (01) | LOC: LAB.N 08:00 | PROVIDERS: ATTEND Family Medicine | DX: I48.0 Paroxysmal atrial fibrillation (principal); Z79.01 Long term (current) use of anticoagulants ==

== ENCOUNTER 2021-02-01 08:00 | Outpatient (CLI) | payer MEDICARE | END 2021-02-01 23:59 | disposition home or self-care (01) | LOC: LAB.N 08:00 | PROVIDERS: ATTEND Family Medicine | DX: I48.0 Paroxysmal atrial fibrillation (principal); Z79.01 Long term (current) use of anticoagulants ==

== ENCOUNTER 2021-02-22 08:00 | Outpatient (CLI) | payer MEDICARE | END 2021-02-22 23:59 | disposition home or self-care (01) | LOC: LAB.N 08:00 | PROVIDERS: ATTEND Family Medicine | DX: I48.0 Paroxysmal atrial fibrillation (principal); Z79.01 Long term (current) use of anticoagulants ==

== ENCOUNTER 2021-04-03 14:43 | Outpatient (CLI) | payer MEDICARE ==
--- NOTE | 2021-04-03 17:09 | XRAY Report ---
PROCEDURE: Foot 3 View LT INDICATIONS: PAIN TECHNIQUE: 3 views of the foot were acquired. COMPARISON: None. FINDINGS: No acute fracture. Moderate first MTP joint degeneration. Subchondral lucency in the first metatarsal head. Soft tissues grossly unremarkable. Scattered subchondral sclerosis and spurring. IMPRESSION: Moderate first MTP joint degeneration. Reviewed by: Wang Delgado MD on 04/03/2021 5:07 PM PDT Approved by: Wang Delgado MD on 04/03/2021 5:07 PM PDT Station ID: [id number]
== END 2021-04-03 14:44 | disposition home or self-care (01) ==
LOC: DI.N 14:43
PROVIDERS: ATTEND Family Medicine
DX: M19.072 Primary osteoarthritis, left ankle and foot (principal)

== ENCOUNTER 2021-05-03 08:00 | Outpatient (CLI) | payer MEDICARE | END 2021-05-03 23:59 | disposition home or self-care (01) | LOC: LAB.N 08:00 | PROVIDERS: ATTEND Family Medicine | DX: Z79.01 Long term (current) use of anticoagulants (principal); I48.0 Paroxysmal atrial fibrillation; G45.9 Transient cerebral ischemic attack, unspecified ==

== ENCOUNTER 2021-06-05 08:00 | Outpatient (CLI) | payer MEDICARE | END 2021-06-05 23:59 | disposition home or self-care (01) | LOC: LAB.N 08:00 | PROVIDERS: ATTEND Family Medicine | DX: I48.0 Paroxysmal atrial fibrillation (principal); Z79.01 Long term (current) use of anticoagulants; G45.9 Transient cerebral ischemic attack, unspecified ==

== ENCOUNTER 2021-06-18 07:53 | Outpatient (CLI) | payer MEDICARE ==
[2021-06-18 12:11] LABS: BASOPHILS # (AUTO) 0.1 10^3/uL (0.0-0.1); BASOPHILS % (AUTO) 1.2 %; EOSINOPHILS # (AUTO) 0.3 10^3/uL (0.0-0.7); EOSINOPHILS % (AUTO) 3.4 %; HCT - HEMATOCRIT 44.6 % (42.0-52.0); HGB - HEMOGLOBIN 15.1 g/dL (14.0-18.0); LYMPHOCYTES # (AUTO) 2.4 10^3/uL (1.5-3.5); MEAN CORPUSCULAR HEMOGLOBIN 32.1 pg (27.0-31.0); MEAN CORPUSCULAR HGB CONC 33.9 g/dL (32.0-36.0); MEAN CORPUSCULAR VOLUME 94.7 fL (80.0-94.0); MEAN PLATELET VOLUME 10.3 fL (7.4-11.4); MONOCYTES # (AUTO) 0.7 10^3/uL (0.0-1.0); MONOCYTES % (AUTO) 7.8 %; NEUTROPHILS # (AUTO) 5.9 10^3/uL (1.5-6.6); NEUTROPHILS % (AUTO) 62.4 %; PLT - PLATELET COUNT 207 10^3/uL (130-450); RED BLOOD COUNT 4.71 10^6/uL (4.70-6.10); WHITE BLOOD COUNT 9.4 x10^3/uL (4.8-10.8)
[2021-06-18 12:12] LABS: BILIRUBIN,URINE NEGATIVE (NEGATIVE); GLUCOSE, URINE (UA) NEGATIVE (NEGATIVE); KETONES,URINE (UA) NEGATIVE (NEGATIVE); LEUKOCYTE ESTERASE, URINE NEGATIVE (NEGATIVE); NITRITE,URINE NEGATIVE (NEGATIVE); OCCULT BLOOD,URINE TRACE-INTA (NEGATIVE); PROTEIN,URINE NEGATIVE (NEGATIVE); UROBILINOGEN,URINE 0.2 (NORMAL) E.U./dL (NORMAL)
[2021-06-18 12:14] LABS: ALBUMIN 3.9 g/dL (3.2-5.5); ALBUMIN/GLOBULIN RATIO 1.3 (1.0-2.2); ALKALINE PHOSPHATASE 74 IU/L (42-121); ALT ALANINE AMINOTRANSFERASE 19 IU/L (10-60); AST ASPARTATE AMINOTRANSFERASE 21 IU/L (10-42); BILIRUBIN,TOTAL 0.7 mg/dL (0.2-1.0); BUN - BLOOD UREA NITROGEN 21 mg/dL (6-20); CALCIUM 8.8 mg/dL (8.5-10.3); CARBON DIOXIDE - CO2 29 mmol/L (21-32); CHLORIDE 102 mmol/L (101-111); CHOL/HDL RATIO 3.7 (<5.0); CHOLESTEROL 155 mg/dL; GFR - MDRD 74 (>89); GLUCOSE 106 mg/dL (70-100); HDL CHOLESTEROL 42 mg/dL; LDL CHOLESTEROL,CALCULATED 90 mg/dL; LDL/HDL RATIO 2.1 (<3.6); POTASSIUM 3.4 mmol/L (3.5-5.0); SODIUM 140 mmol/L (135-145); TRIGLYCERIDES 114 mg/dL; VLDL CHOLESTEROL 23 mg/dL
[2021-06-18 13:20] LABS: CLARITY,URINE CLEAR (CLEAR); WBC,URINE 0-3 /HPF (0-3)
[2021-06-18 13:21] LABS: BACTERIA,URINE None Seen /HPF (None Seen); RBC,URINE None Seen /HPF (0-5); SQUAMOUS EPITHELIAL CELL,UR NONE SEEN (<= Few)
== END 2021-06-18 23:59 | disposition home or self-care (01) ==
LOC: LAB.WCP 07:53
PROVIDERS: ATTEND Family Medicine
DX: I10 Essential (primary) hypertension (principal); E78.5 Hyperlipidemia, unspecified; R31.0 Gross hematuria
CPT/HCPCS: 36415; 80053; 80061; 81001; 83721; 85025; 87086

== ENCOUNTER 2021-08-07 08:00 | Outpatient (CLI) | payer MEDICARE | END 2021-08-07 23:59 | disposition home or self-care (01) | LOC: LAB.N 08:00 | PROVIDERS: ATTEND Family Medicine | DX: I48.0 Paroxysmal atrial fibrillation (principal); Z79.01 Long term (current) use of anticoagulants ==

== ENCOUNTER 2021-12-11 08:00 | Outpatient (CLI) | payer MEDICARE | END 2021-12-11 23:59 | disposition home or self-care (01) | LOC: LAB.WCP 08:00 | PROVIDERS: ATTEND Family Medicine | DX: I48.0 Paroxysmal atrial fibrillation (principal); Z79.01 Long term (current) use of anticoagulants ==

== ENCOUNTER → 2022-01-08 | Outpatient (CLI) | payer MEDICARE | LOC: LAB.N 08:00 | PROVIDERS: ATTEND Family Medicine | DX: I48.0 Paroxysmal atrial fibrillation (principal); G45.9 Transient cerebral ischemic attack, unspecified; Z79.01 Long term (current) use of anticoagulants ==

== ENCOUNTER 2022-03-05 08:00 | Outpatient (CLI) | payer MEDICARE | END 2022-03-05 23:59 | disposition home or self-care (01) | LOC: LAB.WCP 08:00 | PROVIDERS: ATTEND Physician Assistant | DX: Z79.01 Long term (current) use of anticoagulants (principal); I48.0 Paroxysmal atrial fibrillation; G45.9 Transient cerebral ischemic attack, unspecified ==

== ENCOUNTER → 2022-04-02 | Outpatient (CLI) | payer MEDICARE | LOC: LAB.WCP 08:00 | PROVIDERS: ATTEND Physician Assistant | DX: Z79.01 Long term (current) use of anticoagulants (principal); I48.0 Paroxysmal atrial fibrillation; G45.9 Transient cerebral ischemic attack, unspecified ==

== ENCOUNTER 2022-04-21 08:00 | Outpatient (CLI) | payer MEDICARE | END 2022-04-21 23:59 | disposition home or self-care (01) | LOC: LAB.WCP 08:00 | DX: Z79.01 Long term (current) use of anticoagulants (principal); I48.0 Paroxysmal atrial fibrillation ==

== ENCOUNTER 2022-05-16 09:56 | Outpatient (CLI) | payer MEDICARE ==
--- NOTE | 2022-05-16 13:28 | Ultrasound Report ---
PROCEDURE: Duplex Aorta Complete INDICATIONS: AAA TECHNIQUE: Ultrasound of aorta and proximal common iliac arteries COMPARISON: CT abdomen and pelvis, 04/28/2018. FINDINGS: The proximal abdominal aorta measures 2.7 cm in diameter. The mid abdominal aorta measures 2.1 cm in diameter. The distal abdominal aorta measures 2.1 cm in diameter. Right common iliac artery measures 1.4 cm. Left common iliac artery measures 1.3 cm. Atherosclerotic plaques are noted in the aorta and common iliac arteries. IMPRESSION: Mild distal abdominal aortic aneurysm measuring 3.1 cm. Reviewed by: Luis Alberto Mcdonnell MD on 05/16/2022 1:26 PM PST Approved by: Luis Alberto Mcdonnell MD on 05/16/2022 1:26 PM PST Station ID: [id number]
== END 2022-05-16 09:57 | disposition home or self-care (01) ==
LOC: DI 09:56
PROVIDERS: ATTEND Physician Assistant
DX: I71.40 Abdominal aortic aneurysm, without rupture, unspecified (principal)
CPT/HCPCS: 93978

== ENCOUNTER → 2022-06-16 | Outpatient (CLI) | payer MEDICARE | LOC: LAB.WCP 08:00 | PROVIDERS: ATTEND Physician Assistant | DX: Z79.01 Long term (current) use of anticoagulants (principal); I48.0 Paroxysmal atrial fibrillation; G45.9 Transient cerebral ischemic attack, unspecified ==

== ENCOUNTER → 2022-07-09 | Outpatient (CLI) | payer MEDICARE | LOC: LAB.WCP 08:00 | PROVIDERS: ATTEND Physician Assistant | DX: Z79.01 Long term (current) use of anticoagulants (principal); I48.0 Paroxysmal atrial fibrillation; G45.9 Transient cerebral ischemic attack, unspecified ==

== ENCOUNTER → 2022-07-16 | Outpatient (CLI) | payer MEDICARE | LOC: LAB.N 08:00 | PROVIDERS: ATTEND Physician Assistant | DX: Z79.01 Long term (current) use of anticoagulants (principal); I48.0 Paroxysmal atrial fibrillation; G45.9 Transient cerebral ischemic attack, unspecified ==

== ENCOUNTER 2022-07-25 08:00 | Outpatient (CLI) | payer MEDICARE | END 2022-07-25 08:01 | disposition home or self-care (01) | LOC: LAB.N 08:00 | PROVIDERS: ATTEND Physician Assistant | DX: Z79.01 Long term (current) use of anticoagulants (principal); I48.0 Paroxysmal atrial fibrillation; G45.9 Transient cerebral ischemic attack, unspecified ==

== ENCOUNTER 2022-08-08 08:00 | Outpatient (CLI) | payer MEDICARE | END 2022-08-08 23:59 | disposition home or self-care (01) | LOC: LAB.WCP 08:00 | PROVIDERS: ATTEND Physician Assistant | DX: Z79.01 Long term (current) use of anticoagulants (principal); I48.0 Paroxysmal atrial fibrillation ==

== ENCOUNTER 2022-09-03 09:11 | Outpatient (CLI) | payer MEDICARE ==
[2022-09-03 12:14] LABS: BASOPHILS # (AUTO) 0.1 10^3/uL (0.0-0.1); BASOPHILS % (AUTO) 0.8 %; EOSINOPHILS # (AUTO) 0.2 10^3/uL (0.0-0.7); EOSINOPHILS % (AUTO) 1.6 %; HCT - HEMATOCRIT 44.8 % (42.0-52.0); HGB - HEMOGLOBIN 14.8 g/dL (14.0-18.0); LYMPHOCYTES # (AUTO) 1.7 10^3/uL (1.5-3.5); LYMPHOCYTES % (AUTO) 15.3 %; MEAN CORPUSCULAR HEMOGLOBIN 30.8 pg (27.0-31.0); MEAN CORPUSCULAR VOLUME 93.3 fL (80.0-94.0); MEAN PLATELET VOLUME 9.9 fL (7.4-11.4); MONOCYTES # (AUTO) 0.7 10^3/uL (0.0-1.0); MONOCYTES % (AUTO) 6.2 %; NEUTROPHILS # (AUTO) 8.3 10^3/uL (1.5-6.6); NEUTROPHILS % (AUTO) 75.8 %; PLT - PLATELET COUNT 230 10^3/uL (130-450); RED CELL DISTRIBUTION WIDTH 14.1 % (12.0-15.0)
[2022-09-03 12:50] LABS: ALBUMIN/GLOBULIN RATIO 1.1 (1.0-2.2); ALKALINE PHOSPHATASE 79 IU/L (42-121); ALT ALANINE AMINOTRANSFERASE 19 IU/L (10-60); AST ASPARTATE AMINOTRANSFERASE 25 IU/L (10-42); BILIRUBIN,TOTAL 0.6 mg/dL (0.2-1.0); BUN - BLOOD UREA NITROGEN 20 mg/dL (6-20); CALCIUM 9.3 mg/dL (8.5-10.3); CARBON DIOXIDE - CO2 31 mmol/L (21-32); CHLORIDE 103 mmol/L (101-111); CHOL/HDL RATIO 3.6 (<5.0); CHOLESTEROL 179 mg/dL; GFR - MDRD 74 (>89); GLUCOSE 112 mg/dL (70-100); HDL CHOLESTEROL 50 mg/dL; LDL CHOLESTEROL,CALCULATED 109 mg/dL; LDL/HDL RATIO 2.2 (<3.6); POTASSIUM 3.8 mmol/L (3.5-5.0); SODIUM 141 mmol/L (135-145); TOTAL PROTEIN 7.5 g/dL (6.7-8.2); TRIGLYCERIDES 98 mg/dL; VLDL CHOLESTEROL 20 mg/dL
== END 2022-09-03 09:12 | disposition home or self-care (01) ==
LOC: LAB.N 09:11
PROVIDERS: ATTEND Physician Assistant
DX: I10 Essential (primary) hypertension (principal); E78.5 Hyperlipidemia, unspecified; N40.1 Benign prostatic hyperplasia with lower urinary tract symptoms
CPT/HCPCS: 36415; 80053; 80061; 83721; 84153; 85025

== ENCOUNTER 2022-10-10 08:00 | Outpatient (CLI) | payer MEDICARE | END 2022-10-10 23:59 | disposition home or self-care (01) | LOC: LAB.N 08:00 | PROVIDERS: ATTEND Physician Assistant | DX: Z79.01 Long term (current) use of anticoagulants (principal); I48.0 Paroxysmal atrial fibrillation; G45.9 Transient cerebral ischemic attack, unspecified ==

== ENCOUNTER 2022-11-07 08:00 | Outpatient (CLI) | payer MEDICARE | END 2022-11-07 23:59 | disposition home or self-care (01) | LOC: LAB.N 08:00 | PROVIDERS: ATTEND Physician Assistant | DX: I48.0 Paroxysmal atrial fibrillation (principal); Z79.01 Long term (current) use of anticoagulants ==

== ENCOUNTER 2022-12-12 08:00 | Outpatient (CLI) | payer MEDICARE | END 2022-12-12 23:59 | disposition home or self-care (01) | LOC: LAB.N 08:00 | PROVIDERS: ATTEND Physician Assistant | DX: I48.0 Paroxysmal atrial fibrillation (principal); Z79.01 Long term (current) use of anticoagulants ==

== ENCOUNTER 2023-04-22 08:00 | Outpatient (CLI) | payer MEDICARE | END 2023-04-22 23:59 | disposition home or self-care (01) | LOC: LAB.N 08:00 | PROVIDERS: ATTEND Physician Assistant | DX: Z79.01 Long term (current) use of anticoagulants (principal); I48.0 Paroxysmal atrial fibrillation ==

== ENCOUNTER 2023-05-22 08:00 | Outpatient (CLI) | payer MEDICARE | END 2023-05-22 23:59 | disposition home or self-care (01) | LOC: LAB.N 08:00 | PROVIDERS: ATTEND Physician Assistant | DX: Z79.01 Long term (current) use of anticoagulants (principal); I48.0 Paroxysmal atrial fibrillation ==

== ENCOUNTER 2023-06-11 12:19 | Outpatient (CLI) | payer MEDICARE ==
[2023-06-11 18:03] LABS: ALBUMIN 4.4 g/dL (3.2-5.5); ALBUMIN/GLOBULIN RATIO 1.6 (1.0-2.2); BILIRUBIN,TOTAL 0.7 mg/dL (0.2-1.0); CALCIUM 9.4 mg/dL (8.5-10.3); POTASSIUM 3.9 mmol/L (3.5-4.5); TOTAL PROTEIN 7.2 g/dL (6.4-8.9)
== END 2023-06-11 12:20 | disposition home or self-care (01) ==
LOC: LAB.N 12:19
PROVIDERS: ATTEND Physician Assistant Medical
DX: I48.0 Paroxysmal atrial fibrillation (principal)
CPT/HCPCS: 36415; 80053

== ENCOUNTER 2023-07-24 08:00 | Outpatient (CLI) | payer MEDICARE | END 2023-07-24 08:01 | disposition home or self-care (01) | LOC: LAB.N 08:00 | PROVIDERS: ATTEND Physician Assistant | DX: I48.0 Paroxysmal atrial fibrillation (principal); Z79.01 Long term (current) use of anticoagulants ==

== ENCOUNTER 2023-07-31 08:00 | Outpatient (CLI) | payer MEDICARE | END 2023-07-31 08:01 | disposition home or self-care (01) | LOC: LAB.WCP 08:00 | PROVIDERS: ATTEND Physician Assistant | DX: I48.0 Paroxysmal atrial fibrillation (principal); Z79.01 Long term (current) use of anticoagulants ==

== ENCOUNTER → 2023-08-28 | Outpatient (CLI) | payer MEDICARE | LOC: LAB.N 08:00 | PROVIDERS: ATTEND Physician Assistant | DX: I48.0 Paroxysmal atrial fibrillation (principal); G45.9 Transient cerebral ischemic attack, unspecified; Z79.01 Long term (current) use of anticoagulants ==

== ENCOUNTER 2023-09-04 08:00 | Outpatient (CLI) | payer MEDICARE | END 2023-09-04 08:01 | disposition home or self-care (01) | LOC: LAB.N 08:00 | PROVIDERS: ATTEND Physician Assistant | DX: I48.0 Paroxysmal atrial fibrillation (principal); Z79.01 Long term (current) use of anticoagulants ==

== ENCOUNTER 2023-10-05 08:00 | Outpatient (CLI) | payer MEDICARE | END 2023-10-05 08:01 | disposition home or self-care (01) | LOC: LAB.WCP 08:00 | PROVIDERS: ATTEND Nurse Practitioner Family | DX: I48.0 Paroxysmal atrial fibrillation (principal); Z79.01 Long term (current) use of anticoagulants ==

== ENCOUNTER → 2023-10-12 | Outpatient (CLI) | payer MEDICARE | LOC: LAB.N 08:00 | PROVIDERS: ATTEND Physician Assistant | DX: Z79.01 Long term (current) use of anticoagulants (principal); I48.0 Paroxysmal atrial fibrillation ==

== ENCOUNTER 2023-10-26 08:00 | Outpatient (CLI) | payer MEDICARE | END 2023-10-26 08:01 | disposition home or self-care (01) | LOC: LAB.WCP 08:00 | PROVIDERS: ATTEND Physician Assistant | DX: Z79.01 Long term (current) use of anticoagulants (principal); I48.0 Paroxysmal atrial fibrillation; Z53.9 Procedure and treatment not carried out, unspecified reason ==

== ENCOUNTER → 2023-11-06 | Outpatient (CLI) | payer MEDICARE | LOC: LAB.WCP 08:00 | PROVIDERS: ATTEND Physician Assistant | DX: I48.0 Paroxysmal atrial fibrillation (principal); Z79.01 Long term (current) use of anticoagulants ==

== ENCOUNTER → 2023-11-13 | Outpatient (CLI) | payer MEDICARE | LOC: LAB.WCP 08:00 | PROVIDERS: ATTEND Physician Assistant | DX: I48.0 Paroxysmal atrial fibrillation (principal); Z79.01 Long term (current) use of anticoagulants ==

== ENCOUNTER 2023-11-27 08:00 | Outpatient (CLI) | payer MEDICARE | END 2023-11-27 08:01 | disposition home or self-care (01) | LOC: LAB.WCP 08:00 | PROVIDERS: ATTEND Physician Assistant | DX: I48.0 Paroxysmal atrial fibrillation (principal); Z79.01 Long term (current) use of anticoagulants ==

== ENCOUNTER 2023-12-10 08:15 | Outpatient (CLI) | payer MEDICARE ==
[2023-12-10 12:03] LABS: BASOPHILS # (AUTO) 0.1 10^3/uL (0.0-0.1); BASOPHILS % (AUTO) 1.1 %; EOSINOPHILS # (AUTO) 0.3 10^3/uL (0.0-0.7); EOSINOPHILS % (AUTO) 3.7 %; HCT - HEMATOCRIT 44.9 % (42.0-52.0); HGB - HEMOGLOBIN 14.8 g/dL (14.0-18.0); LYMPHOCYTES % (AUTO) 22.4 %; MEAN CORPUSCULAR HEMOGLOBIN 31.5 pg (27.0-31.0); MEAN CORPUSCULAR VOLUME 95.5 fL (80.0-94.0); MEAN PLATELET VOLUME 10.3 fL (7.4-11.4); MONOCYTES # (AUTO) 0.7 10^3/uL (0.0-1.0); MONOCYTES % (AUTO) 7.9 %; NEUTROPHILS # (AUTO) 5.7 10^3/uL (1.5-6.6); NEUTROPHILS % (AUTO) 64.7 %; PLT - PLATELET COUNT 238 10^3/uL (130-450); RED CELL DISTRIBUTION WIDTH 14.2 % (12.0-15.0); WHITE BLOOD COUNT 8.8 x10^3/uL (4.8-10.8)
[2023-12-10 12:21] LABS: ALBUMIN 4.2 g/dL (3.2-5.5); ALBUMIN/GLOBULIN RATIO 1.6 (1.0-2.2); ALKALINE PHOSPHATASE 95 IU/L (42-121); ALT ALANINE AMINOTRANSFERASE 17 IU/L (10-60); AST ASPARTATE AMINOTRANSFERASE 21 IU/L (10-42); BILIRUBIN,TOTAL 0.5 mg/dL (0.2-1.0); BUN - BLOOD UREA NITROGEN 19 mg/dL (6-20); CALCIUM 9.3 mg/dL (8.5-10.3); CARBON DIOXIDE - CO2 30 mmol/L (21-32); CHLORIDE 105 mmol/L (101-111); CHOL/HDL RATIO 3.9 (<5.0); CHOLESTEROL 170 mg/dL; CREATININE 1.1 mg/dL (0.6-1.3); GFR - MDRD 66 (>89); GLUCOSE 114 mg/dL (74-104); HDL CHOLESTEROL 44 mg/dL; LDL CHOLESTEROL,CALCULATED 106 mg/dL; LDL/HDL RATIO 2.4 (<3.6); POTASSIUM 3.7 mmol/L (3.5-4.5); SODIUM 140 mmol/L (135-145); TOTAL PROTEIN 6.9 g/dL (6.4-8.9); TRIGLYCERIDES 99 mg/dL (48-352); VLDL CHOLESTEROL 20 mg/dL
[2023-12-10 12:35] LABS: THYROID STIMULATING HORMONE 1.27 uIU/mL (0.34-5.60)
== END 2023-12-10 08:16 | disposition home or self-care (01) ==
LOC: LAB.N 08:15
PROVIDERS: ATTEND Physician Assistant
DX: I10 Essential (primary) hypertension (principal); E78.5 Hyperlipidemia, unspecified; Z12.5 Encounter for screening for malignant neoplasm of prostate
CPT/HCPCS: 36415; 80053; 80061; 84443; 85025; G0103; 83721; 84153

== ENCOUNTER 2024-02-05 08:00 | Outpatient (CLI) | payer MEDICARE | END 2024-02-05 23:59 | disposition home or self-care (01) | LOC: LAB.WCP 08:00 | PROVIDERS: ATTEND Physician Assistant | DX: Z79.01 Long term (current) use of anticoagulants (principal); I48.0 Paroxysmal atrial fibrillation ==

== ENCOUNTER 2024-03-16 08:00 | Outpatient (CLI) | payer MEDICARE | END 2024-03-16 23:59 | disposition home or self-care (01) | LOC: LAB.WCP 08:00 | PROVIDERS: ATTEND Physician Assistant | DX: I48.0 Paroxysmal atrial fibrillation (principal); Z79.01 Long term (current) use of anticoagulants ==